=== PATIENT | male | born 1935 | race Caucasian/White ===

== ENCOUNTER 2023-03-09 23:31 | Inpatient (IN) | payer BC, MEDICAID ==
[~2023-03-09] VITALS: Ht 175.3 cm; Wt 55.8 kg
[2023-03-09 23:40] VITALS: BP_SYST 138
--- NOTE | 2023-03-09 23:40 | NUR ---
Triaged and placed patient to ER bed 2 for evaluation. Report given to ALDEN GALEANO for continuity of care. Bed placed in lowest position with side rails up. Instructed to notify ED staff for any changes in condition or worsening of symptoms while waiting to be seen by a provider. Patient verbalized understanding.
[2023-03-10] MEDS ORDERED: NACL 0.9% 1,000 ML IV ONE
--- NOTE | 2023-03-10 | NUR ---
Dr. Richter at bedside examining the patient.
--- NOTE | 2023-03-10 00:42 | NUR ---
Pt BIBA from [facility] for failure to thrive Hx of FTT, HTN, CAD, CVA, HLD, Gtube AOX1 VSS unable to make needs known Will continue to monitor
[2023-03-10 00:52] LABS: BASOPHILS % (AUTO) 0.3 % (0.0-2.0); EOSINOPHILS % (AUTO) 0.4 % (0.0-4.0); HEMATOCRIT 32.3 % (36-54); HEMOGLOBIN 10.9 g/dL (14.0-18.0); LYMPHOCYTES # (AUTO) 1.6 K/uL (1.0-5.5); MEAN CORPUSCULAR HEMOGLOBIN 36 pg (27-31); MEAN CORPUSCULAR HGB CONC 34 % (32-36); MEAN CORPUSCULAR VOLUME 105 fL (79.0-98.0); MONOCYTES # (AUTO) 0.5 K/uL (0.0-1.0); MONOCYTES % (AUTO) 9.7 % (1.7-9.3); NEUTROPHILS # (AUTO) 3.4 K/uL (1.8-7.7); NEUTROPHILS % (AUTO) 61.6 % (40.0-70.0); PLATELET COUNT (AUTO) 114 K/uL (130-430); RED BLOOD CELL COUNT(AUTO) 3.07 MIL/uL (4.2-6.2); RED CELL DISTRIBUTION WIDTH 14.4 % (9.0-15.0); WHITE BLOOD COUNT (AUTO) 5.6 K/uL (4.8-10.8)
[2023-03-10 01:00] LABS: ANION GAP 3 (5-15); CALCIUM 8.6 mg/dL (8.4-11.0); CHLORIDE 104 mmol/L (98-107); CREATININE 0.53 mg/dL (0.55-1.30); GLUCOSE 98 mg/dL (70-99); UREA NITROGEN, BLOOD 19 mg/dL (8-21)
[2023-03-10 01:07] LABS: ALANINE AMINOTRANSFERASE 11 U/L (12-78); ALBUMIN 2.9 g/dL (3.4-4.8); ASPARTATE AMINOTRANSFERASE 11 U/L (10-37); TOTAL BILIRUBIN 0.5 mg/dL (0.0-1.0)
--- NOTE | 2023-03-10 03:09 | NUR ---
Admit bed requested Patient will be admitted to care of Dr. CARRENO. Admitted to [facility] unit. Diagnosis DEHYDRATION AND UTI Inpatient (Yes or No) YES Observation (Yes or No) NO Orientation concerns or request close to nursing station (Yes or No) NO Covid Status N/A On vent or bipap NO Isolation requirements NONE Needs a sitter NO From Home (Yes or if No enter name of facility) [facility] Requires Dialysis (Yes or No) NO Med Rec Completed (Yes of No) YES
[2023-03-10 04:15] VITALS: BP_SYST 135
[2023-03-10 04:18] LABS: BILIRUBIN,URINE NEGATIVE (NEGATIVE); BLOOD, URINE NEGATIVE (NEGATIVE); COLOR,URINE YELLOW (YELLOW); GLUCOSE,URINE NEGATIVE (NEGATIVE); KETONES,URINE NEGATIVE (NEGATIVE); LEUKOCYTE ESTERASE ,URINE NEGATIVE (NEGATIVE); NITRITE, URINE NEGATIVE (NEGATIVE); PH,URINE 7.5 (5.0-8.0); PROTEIN URINE NEGATIVE (NEGATIVE)
[2023-03-10 04:20] LABS: CLARITY/URINE HAZY (CLEAR)
--- NOTE | 2023-03-10 04:25 | NUR ---
Patient will be admitted to [facility]. Admitted to MS unit. Will go to room 133A. Belongings list completed. Complete and up to date summary report printed. SBAR report to be given at bedside with opportunity for questions.
--- NOTE | 2023-03-10 04:30 | NUR ---
pt.received via the er-dept.pt.presents rt.sided weakness;contracted status.lt.arm/leg active.pt.speech status:garbled.attempt to assess the pt.cutaneous;general pt.will strike nsg.pt.presents iv access location lt.forearm.pt.incontinent:bladder/bowel.pt. presents cutaneous compromise;wounds.v/s assessed values wnl.02 sat%=98%@room air.call light/telephone presented/placed w/in access of the pt.
--- NOTE | 2023-03-10 05:00 | NUR ---
pt.presents cutaneous compromise;wounds.i have attempted to assess the pt's wounds.pt.began to strike/kick me.pt.required application restraints;wrist bilateral.wounds assessed/photographed dsg applied attended to.pt.cleaned repositioned.call light/ telephone placed w/in access of the pt.
--- NOTE | 2023-03-10 06:30 | NUR ---
pt.assessed.restraints assessed in place.skin/circulation assessed wnl.i have initiated the administration iv fluids via peripheral line.per flacc pin mgx pt.absent facial grimaces/body posturing.pt.assessed for cleanliness pt.repositioned. call light/telephone placed w/in access of the pt.
[2023-03-10] MEDS: D5/0.45 NS 1,000 ML IV SCH ×2 (06:38→16:35)
[2023-03-10 08:00] VITALS: BP_SYST 150
[2023-03-10] MEDS ORDERED: cefTRIAXone 1 GM in D5W 50 ML IV SCH (09:00)
[2023-03-10 11:21] VITALS: BP_SYST 143
[2023-03-10] MEDS: cefTRIAXone 1 GM in D5W 50 ML IV SCH (13:08)
[2023-03-10 13:28] VITALS: BP_SYST 143
[2023-03-10] MEDS ORDERED: levalbuterol HCL 0.63 MG/3 ML VIAL.NEB INH PRN (13:45)
[2023-03-10] MEDS: AZITHROMYCIN 500 MG in NS 250 ML IV SCH (14:55)
[2023-03-10 16:00] VITALS: BP_SYST 141
--- NOTE | 2023-03-10 17:00 | NUR ---
Dietitian Recommendations * Advance Jevity 1.2 @ 65 mL/hr (goal rate), Nash BID, w/ Free Water Flush 150 mL q8h via GT: - Provides: 2032 kcals, 92 g PRO, and 1709 mL of total volume. - Meets: 93% lower est. kcal needs, 84% lower est. PRO needs, and 95% lower est. fluid needs daily. * Oral grat. per ST recommendations - Nutrition Assessment completed by Yessi Traore, [employer]-Signed By: Julissa Harrison MS, RD Please refer to Nutrition Assessment for details.
--- NOTE | 2023-03-10 17:02 | NUR ---
ST EVALUATION COMPLETED. ST TX NOT INDICATED AT THIS TIME. PT REPORTS NO APPETITE AND DECLINES PO MEALS AND SNACKS. RECOMMEND CONTINUE ENTERAL FEEDING ORDERED AND PUREE/THIN LIQUIDS FOR ORAL GRATIFICATION PRN. 1:1 ASSISTANCE FOR ORAL INTAKE AND FULL ASPIRATION PRECAUTIONS.
[2023-03-10] MEDS: ENOXAPARIN SODIUM 40 MG/0.4 ML SYRINGE SUBCUT SCH (21:00)
[2023-03-11 00:46] VITALS: BP_SYST 146
[2023-03-11 04:00] VITALS: BP_SYST 153
[2023-03-11 05:42] LABS: BASOPHILS % (AUTO) 0.3 % (0.0-2.0); EOSINOPHILS % (AUTO) 0.4 % (0.0-4.0); HEMATOCRIT 30.2 % (36-54); HEMOGLOBIN 10.1 g/dL (14.0-18.0); LYMPHOCYTES # (AUTO) 1.5 K/uL (1.0-5.5); LYMPHOCYTES % (AUTO) 32.4 % (20.5-51.5); MEAN CORPUSCULAR HEMOGLOBIN 35 pg (27-31); MEAN CORPUSCULAR HGB CONC 34 % (32-36); MEAN CORPUSCULAR VOLUME 105 fL (79.0-98.0); MONOCYTES # (AUTO) 0.4 K/uL (0.0-1.0); NEUTROPHILS # (AUTO) 2.8 K/uL (1.8-7.7); NEUTROPHILS % (AUTO) 57.9 % (40.0-70.0); PLATELET COUNT (AUTO) 111 K/uL (130-430); RED BLOOD CELL COUNT(AUTO) 2.87 MIL/uL (4.2-6.2); RED CELL DISTRIBUTION WIDTH 14.1 % (9.0-15.0); WHITE BLOOD COUNT (AUTO) 4.8 K/uL (4.8-10.8)
[2023-03-11 05:58] LABS: ANION GAP 6 (5-15); CALCIUM 7.9 mg/dL (8.4-11.0); CHLORIDE 105 mmol/L (98-107); CREATININE 0.46 mg/dL (0.55-1.30); GLUCOSE 112 mg/dL (70-99); UREA NITROGEN, BLOOD 11 mg/dL (8-21)
[2023-03-11 06:02] LABS: TOTAL IRON BIND. CAPACITY 170 ug/dL (250-450)
--- NOTE | 2023-03-11 07:30 | NUR ---
Initial Note: Report received from [facility]. Patient is awake but confused. Bed in the lowest position and side rails x3 up. G-tube feeding Glucerna 1.2 is still infusing. Bed alarm is on. Assessment is done and vital checked. No pain or discomfort at this time. Will continue patient care.
[2023-03-11 08:00] VITALS: BP_SYST 156
--- NOTE | 2023-03-11 10:03 | NUR ---
CM called [facility] and spoke with Lillian who states this patient is wheelchair bound. Peg in for FTT. Informs CM to call to see if there is a bed available before DC. DC transportation discussed. Lillian unsure of how patient will be transferred back to facility. Lillian to give her administration this CM direct # for coordination. Addendum: 03/11/23 at 1008 by Gretel Palomino RN [facility] [phone]
[2023-03-11] MEDS: D5/0.45 NS 1,000 ML IV SCH ×2 (10:59→17:42)
[2023-03-11 11:31] VITALS: BP_SYST 127
--- NOTE | 2023-03-11 11:58 | NUR ---
CM received a phone call from Shelton at [facility] who informs this CM that Dr Braswell spoke with him and wants to send the patient to [facility] as he is "declining fast". Shelton provided this CM with the cell # to Zulma at [facility] in [place] [phone]. CM called and left a message on her cell and one with the community relations assistant at [facility]
--- NOTE | 2023-03-11 12:00 | NUR ---
Note: patient is resting in bed. No pain or discomfort at this time. Bed in the lowest position and side rails x3 up. Patient is still on bilateral restraint and G-tube infusing. No residual at this time. No pain or discomfort or injury at this time. will continue patient care.
--- NOTE | 2023-03-11 12:23 | NUR ---
Spoke with Zulma at [facility] who confirms that Dr Braswell is requesting for this patient to be transferred there. Zulma gave a bed for this patient; he will go to room 217B. Will fax DCP order and referral to f#[phone]
[2023-03-11] MEDS: cefTRIAXone 1 GM in D5W 50 ML IV SCH (13:24)
[2023-03-11 15:34] VITALS: BP_SYST 130
[2023-03-11] MEDS: AZITHROMYCIN 500 MG in NS 250 ML IV SCH (16:00)
--- NOTE | 2023-03-11 16:59 | NUR ---
DC transportation placed on will call with [facility] . call to activate on day of patient discharge Addendum: 03/11/23 at 1703 by Gretel Palomino RN RN to notify patient family when stable for discharge and update on SNF. packet will be on unit in nurses station.
--- NOTE | 2023-03-11 19:51 | NUR ---
Closing Note: Renewed the restraint order. Dr. Braswell is aware. Reported to Vilma. patient is resting in bed. No pain or discomfort at this time. Endorse to continue patient care.
--- NOTE | 2023-03-11 20:01 | NUR ---
RECEIVED PT IN BED, AOX1, EVEN AND UNLABORED BREATHING, PT ON RESTRAIN, ON TUBE FEEDING, JEVITY 1.2 AT 65CC, D5 1/2 NS AT Addendum: 03/12/23 at 0602 by [facility] Ezekiel Lee RN RN D5 1/2NS AT 75CC ONGOING TO [facility], WILL CONTINUE WITH POC
[2023-03-11 20:03] VITALS: BP_SYST 129
[2023-03-11] MEDS: ENOXAPARIN SODIUM 40 MG/0.4 ML SYRINGE SUBCUT SCH (22:08)
[2023-03-12] VITALS: BP_SYST 141
--- NOTE | 2023-03-12 06:50 | NUR ---
PT IN BED, AOX1, EVEN AND UNLABORED BREATHING, ROOM AIR, BED REST, PT ON ISABEL SOFT RESTRAIN TO WRIST, PT ON TUBE FEEDING, JEVITY 1.2 AT 65CC, RESIDUE WAS 0, D5 1/2NS AT 75CC ONGOING TO THE LFA, INCONTINENT AND VOIDED, NO BM THIS SHIFT, WOUND DSG STILL INTACT, DID NOT SUSTAIN ANY INJURY ON BOTH WRIST FROM RESTRAIN AND NO SIGN OF VASCULAR CONSTRICTION NOTED, SAFETY PREC MAINTAINED, WILL BE ENDORSED TO AM SHIFT
[2023-03-12 07:06] LABS: FERRITIN 446 ng/mL (30-400)
--- NOTE | 2023-03-12 07:49 | NUR ---
RN OPENING NOTE REPORT WAS ENDORSED BY NIGHT NURSE. PATIENT IS AWAKE NO SIGNS OF ANY DISTRESS. ALL SAFETY PRECAUTIONS IN PLACE. NO OTHER NEEDS AT THIS TIME.
[2023-03-12 08:00] VITALS: BP_SYST 153
[2023-03-12 08:06] LABS: FOLATE (FOLIC ACID) >20.0 ng/mL (>3.0)
[2023-03-12] MEDS: D5/0.45 NS 1,000 ML IV SCH ×2 (09:05→22:48)
--- NOTE | 2023-03-12 09:07 | NUR ---
IV FLUID/INCONTINENCE CARE Addendum: 03/12/23 at 1934 by Princess Rodarte RN MEDICATION ORDERED. INCONTINENCE CARE DONE ORDERED. CONDOM CATH PLACED. PATIENT SHOWS NO SIGNS OF ANY DISTRESS, BREATHING IS EQUAL AND NON LABORED. ALL SAFETY PRECAUTIONS IN PLACE.
--- NOTE | 2023-03-12 11:23 | NUR ---
PAGING DR. CARRENO FOR MRSA RESULTS. CONDOM CATH PLACED BACK ON PATIENT. PATIENT SHOWS NO SIGNS OF ANY DISTRESS, BREATHING IS EQUAL AND NON LABORED. PATIENT EDUCATED OPERATIONS PROGRAM MANAGER LIGHT FOR ASSISTANCE. CALL LIGHT IS WITH HIM NO OTHER NEEDS AT THIS TIME.
[2023-03-12 11:26] VITALS: BP_SYST 123
--- NOTE | 2023-03-12 13:38 | NUR ---
Attending MD medication reconciliation technician Dr Benton was called, RE: to notify pt is MRSA + OF NARES. Spoke to Pam.
[2023-03-12] MEDS: cefTRIAXone 1 GM in D5W 50 ML IV SCH (13:50)
--- NOTE | 2023-03-12 14:53 | NUR ---
SPOKE WITH INFORMED OF MRSA POSITIVE ORDERS WERE RECEIVED.
[2023-03-12 15:23] VITALS: BP_SYST 130
[2023-03-12] MEDS: AZITHROMYCIN 500 MG in NS 250 ML IV SCH (16:16)
--- NOTE | 2023-03-12 19:31 | NUR ---
RN CLOSING NOTE PATIENT IS AWAKE AND SITTING UP IN BED. NO COMPLAINTS AT THIS TIME. CALL LIGHT IS WITH HIM. EDUCATED TO USE FOR ASSISTANCE. REPORT WAS ENDORSED TO NIGHT NURSE. NO OTHER NEEDS AT THIS TIME.
[2023-03-12 20:00] VITALS: BP_SYST 140
[2023-03-12] MEDS: MUPIROCIN 2% TOPICAL OINTMENT 22 GM NS SCH (21:00)
[2023-03-12] MEDS: ENOXAPARIN SODIUM 40 MG/0.4 ML SYRINGE SUBCUT SCH (22:47)
[2023-03-13] VITALS (8 sets, daily range): BP systolic 110–149
--- NOTE | 2023-03-13 07:35 | NUR ---
rn opening note patient appears to be resting with both eyes closed no signs of any distress, breathing is equal and nonlabored. patient's condom cath draining. no other needs at this time.
[2023-03-13] MEDS: MUPIROCIN 2% TOPICAL OINTMENT 22 GM NS SCH ×3 (09:00→21:00)
--- NOTE | 2023-03-13 09:22 | NUR ---
medication Addendum: 03/13/23 at 1515 by Princess Rodarte RN patient is refusing medication states no and shakes his head educated patient but is refusing trying to grab and get out of restraints. patient educated neonatal surgeon light for assitance call light is with him. patient has all safety precautions in place. no other needs at this time.
--- NOTE | 2023-03-13 12:23 | NUR ---
change feeding tube pump Addendum: 03/13/23 at 1516 by Princess Rodarte RN water flush done as ordered. patient's g tube feeding changed along as tubing. patient is tolerating tube feeding well with no residual. patient has no other needs at this time. call light is with him educated to use for assistance. patient shows no signs of any distress.
--- NOTE | 2023-03-13 13:44 | NUR ---
Nutrition F/U RD reviewed pts current EMR including diet hx, physician notes, nursing notes, pertinent labs/meds/procedures, care trends and care activity. Subjective Information RD rounded to the floor and tried to find pt RN but was unable to. RD tried calling RN twice but was unable to get through. Per EMR review: abd soft, non-distended w/ active bowel sounds; 0mL GRV documented since 03/10; BP/ temp/ respiratory rate trending WNL; pt on room air; pt likely to DC soon. Pt is likely meeting nutritional needs at this time. Current Diet Order/Nutrition Support Jevity 1.2 @ 65 mL/hr (goal rate), Nash BID, w/ Free Water Flush 150 mL q8h via GT x 3 days % PO intake N/A Last BM No documented BM Estimated Energy Expenditure (kcals/day) [id number] (30-35 kcal/kg IBW [73kg] d/t wt gain promotion, wound healing) Estimated Protein Required (g/day) 110-146 (1.5-2 g/kg IBW d/t wt gain promotion, wound healing) Estimated Fluid Required (l/day) 1.8-2.2 (25-30 kcal/kg IBW d/t GERIAT status) Problem/Etiology/Signs/Symptoms * Increased nutritional needs R/T metabolic demands AEB estimated nutritional requirements for wound healing, wt gain promotion. * ongoing Expected Outcomes/Goals * Monitor nutrition support w/ goal of pt meeting >80% of estimated nutritional needs, TF tolerance, nutrition-related labs trending WNL, normal GI function and BM regime, skin integrity w/ wt. maintenance. Dietitian Recommendations * Continue Jevity 1.2 @ 65 mL/hr (goal rate), Nash BID, w/ FWF 150 mL q8h via GT: - Provides: 2032 kcals, 92 g PRO, and 1709 mL of total volume. - Meets: 93% lower est. kcal needs, 84% lower est. PRO needs, and 95% lower est. fluid needs daily. * Oral grat. per ST recommendations Follow up *Moderate risk: f/u in 3-5 days GS, MPH, RD
--- NOTE | 2023-03-13 13:45 | NUR ---
Dietitian Recommendations * Continue Jevity 1.2 @ 65 mL/hr (goal rate), Nash BID, w/ FWF 150 mL q8h via GT: - Provides: 2032 kcals, 92 g PRO, and 1709 mL of total volume. - Meets: 93% lower est. kcal needs, 84% lower est. PRO needs, and 95% lower est. fluid needs daily. * Oral grat. per ST recommendations GS, MPH, RD Please refer to Nutrition F/U for further details. Thanks!
[2023-03-13] MEDS: cefTRIAXone 1 GM in D5W 50 ML IV SCH (14:26)
[2023-03-13] MEDS: AZITHROMYCIN 500 MG in NS 250 ML IV SCH (15:08)
[2023-03-13] MEDS: D5/0.45 NS 1,000 ML IV SCH (15:09)
--- NOTE | 2023-03-13 15:12 | NUR ---
medication /incontinence care patient's scheduled medication given per order. patient is awake and alert sitting up in bed. no complaints at this time. call light is with him educated to use for assistance no other needs at this time. .
--- NOTE | 2023-03-13 18:47 | NUR ---
rn closing note patient is sitting in bed, no complaints at this time. call light is with him educated to use for assistance. patient has all safety precautions in place. no other needs at this time.
[2023-03-13] MEDS: ENOXAPARIN SODIUM 40 MG/0.4 ML SYRINGE SUBCUT SCH (21:54)
[2023-03-14] VITALS (7 sets, daily range): BP systolic 123–161
[2023-03-14] MEDS: D5/0.45 NS 1,000 ML IV SCH ×2 (00:35→13:39)
--- NOTE | 2023-03-14 04:08 | NUR ---
Received report from previous nurse. Pt is awake in bed, alert x1. IV intact and infusing. Left wrist restraint in place, CSM in LUE. VSS on room air. GTF jevity 1.2 @65ml/hr. 0 residuals, flushed per order. GTF bag changed. Condom catheter in place. No distress noted. Call light within reach. Safety and isolation precautions enforced. Will continue to monitor.
[2023-03-14 04:42] LABS: ANION GAP 3 (5-15); CALCIUM 8.3 mg/dL (8.4-11.0); CHLORIDE 105 mmol/L (98-107); CREATININE 0.45 mg/dL (0.55-1.30); GLUCOSE 107 mg/dL (70-99); UREA NITROGEN, BLOOD 16 mg/dL (8-21)
[2023-03-14 04:54] LABS: BASOPHILS % (AUTO) 0.3 % (0.0-2.0); EOSINOPHILS % (AUTO) 0.5 % (0.0-4.0); HEMATOCRIT 29.6 % (36-54); HEMOGLOBIN 10.2 g/dL (14.0-18.0); LYMPHOCYTES # (AUTO) 1.2 K/uL (1.0-5.5); LYMPHOCYTES % (AUTO) 25.6 % (20.5-51.5); MEAN CORPUSCULAR HEMOGLOBIN 36 pg (27-31); MEAN CORPUSCULAR HGB CONC 34 % (32-36); MEAN CORPUSCULAR VOLUME 104 fL (79.0-98.0); MONOCYTES # (AUTO) 0.5 K/uL (0.0-1.0); MONOCYTES % (AUTO) 10.1 % (1.7-9.3); NEUTROPHILS % (AUTO) 63.5 % (40.0-70.0); PLATELET COUNT (AUTO) 127 K/uL (130-430); RED BLOOD CELL COUNT(AUTO) 2.84 MIL/uL (4.2-6.2); RED CELL DISTRIBUTION WIDTH 14.2 % (9.0-15.0); WHITE BLOOD COUNT (AUTO) 4.8 K/uL (4.8-10.8)
--- NOTE | 2023-03-14 06:50 | NUR ---
Pt eyes closed laying comfortably in bed. IV intact and infusing. GT intact jevity 1.2 @65ml/hr. 0 residuals. Bilateral soft wrist restraints remained in place. CSM in BUE. Condom catheter in place. No acute distress noted. Call light within reach. Safety and isolation precautions enforced. All needs met. Will endorse to day shift nurse.
[2023-03-14] MEDS: cefTRIAXone 1 GM in D5W 50 ML IV SCH (13:00)
--- NOTE | 2023-03-14 13:28 | NUR ---
Pt's PIV would not flush this am. PIV removed and the catheter has been bent. New attempts made to start a new line but pt becomes aggressive and swings even with 2 assist. CM called and stated there is a possibility of transfer today now that restraints have been removed. I paged Dr. rBaswell at [phone] to notify him. The pt is still receiving IV abx.
[2023-03-14] MEDS: AZITHROMYCIN 500 MG in NS 250 ML IV SCH (13:39)
--- NOTE | 2023-03-14 13:39 | NUR ---
Dr. Braswell reports the pt can remain without PIV in anticipation of pt transfer
--- NOTE | 2023-03-14 14:55 | NUR ---
[facility] WILL BE HERE AT 5:30 PM TO TRANSFER PATIENT TO [facility].
[2023-03-14] MEDS ORDERED: MUPI15CR12 TP (17:27)
[2023-03-14] MEDS ORDERED: LOVI40 SQ (17:28)
--- NOTE | 2023-03-14 19:15 | NUR ---
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 Stated they should arrive in 10-15 minutes.
== END 2023-03-14 21:25 | DRG 194 ==
LOC: SED 23:31 → SMU 03-10 03:06
PROVIDERS: ADMIT Family Medicine; ATTEND Family Medicine
DX: J18.9 Pneumonia, unspecified organism (principal); E44.0 Moderate protein-calorie malnutrition; Z68.1 Body mass index [BMI] 19.9 or less, adult; E86.0 Dehydration; I10 Essential (primary) hypertension; R13.10 Dysphagia, unspecified; M17.0 Bilateral primary osteoarthritis of knee; D64.9 Anemia, unspecified; Z20.822 Contact with and (suspected) exposure to COVID-19; F03.90 Unspecified dementia, unspecified severity, without behavioral disturbance, psychotic disturbance, mood disturbance, and anxiety; Z93.1 Gastrostomy status; Z88.1 Allergy status to other antibiotic agents; Z87.891 Personal history of nicotine dependence; Z79.899 Other long term (current) drug therapy
CPT/HCPCS: 36415; 71045; 80048; 80053; 81003; 82607; 82728; 82746; 83540; 83550; 83605; 83735; 84484; 85025; 87040; 87081; 92610-GN; 93005; 94760; 96365; 96367; 99285; J0456; J0696; J1650; J7050; J7060